=== PATIENT | female | born 1995 | race Caucasian/White ===

== ENCOUNTER 2020-07-31 09:01 | Outpatient (CLI) | payer OTHER ==
[~2020-07-31 09:01] MED LIST: GADOTERATE 5 MMOL/10 ML VIAL ONE; LIDOCAINE 1%, 10ML ONE; OMNIPAQUE 300 MG/ML, 10ML VIAL ONE; ROPivacaine/PF 0.2%, 10 ML ONE
[2020-07-31] MEDS ORDERED: OMNIPAQUE 300 MG/ML, 10ML VIAL ONE (10:09)
[2020-07-31] MEDS ORDERED: GADOBUTROL 10 MMOL/10 ML VIAL ONE (10:09)
== END 2020-07-31 23:59 | disposition home or self-care (01) ==
LOC: RAD 09:01
PROVIDERS: ATTEND Physician Assistant Surgical
DX: M25.552 Pain in left hip (principal); M25.852 Other specified joint disorders, left hip
CPT/HCPCS: 27093; 73525; 73722; A9575; A9585; J2795; J3490; Q9967